=== PATIENT | male | born 1970 | race Caucasian/White ===

== ENCOUNTER 2017-05-03 11:10 | Emergency (ER) | payer MEDICARE ==
[2017-05-03 13:38] LABS: HEMOGLOBIN 14.7 gm/dl (14.0-17.5); RED BLOOD COUNT 4.86 M/UL (4.20-5.50); WHITE BLOOD COUNT 5.9 K/UL (4.5-11.0)
[2017-05-03 14:04] LABS: BUN/CREATININE RATIO 14 (0-10)
== END 2017-05-03 17:59 | disposition home or self-care (01) ==
LOC: ER1 11:10
PROVIDERS: Specialist/Technologist Athletic Trainer
DX: R07.2 Precordial pain (principal)
CPT/HCPCS: 36415; 71010; 80053; 82550; 82553; 83874; 84484; 85025; 85610; 85730; 93005; 96360; 99285; J7040

== ENCOUNTER 2022-06-06 13:30 | Emergency (ER) | payer OTHER ==
[~2022-06-06 13:30] MED LIST: 3 IN 1 COMMODE XX; AZOR 10-40 MG1 EACH PO; CHILDREN'S ASPI81 MG PO; FLAGYL500 MG PO; IMDUR ER TAB 3030 MG PO; K-DUR TAB 20 M20 MEQ PO; KEFLEX CAP 500500 MG PO; LIPITOR TAB 2020 MG PO; NORVASC 5 MG TAB5 MG PO; PROTONIX40 MG PO
[2022-06-06 14:11] LABS: HEMOGLOBIN 14.5 gm/dl (14.0-17.5); RED BLOOD COUNT 4.65 M/UL (4.20-5.50); WHITE BLOOD COUNT 9.9 K/UL (4.5-11.0)
[2022-06-06 14:38] LABS: BUN/CREATININE RATIO 15 (0-10)
== END 2022-06-06 18:05 | disposition home or self-care (01) ==
LOC: ER1 13:30
PROVIDERS: Physician Assistant
DX: R10.32 Left lower quadrant pain (principal); R50.9 Fever, unspecified; R05.9 Cough, unspecified; K21.9 Gastro-esophageal reflux disease without esophagitis; Z88.0 Allergy status to penicillin; Z20.822 Contact with and (suspected) exposure to COVID-19
CPT/HCPCS: 0240U; 71045; 80053; 81001; 85025; 96374; 99284; J1885; Q9967